=== PATIENT | female | born 1950 | race Caucasian/White ===

== ENCOUNTER 2021-09-30 18:22 | Inpatient (IN) ==
[2021-09-30] MEDS ORDERED: D5% in Water 1,000 ML IVC ONE (18:52)
[2021-09-30] MEDS ORDERED: *HR* Dextrose 50 % in Water (Syg) 50 ML SYRINGE ONE ×3 (18:52→21:52)
[2021-09-30] MEDS ORDERED: *HR* Dextrose 50 % in Water (Syg) 50 ML SYRINGE IVP ONE ×4 (18:58→22:41)
[2021-09-30] MEDS ORDERED: D5% in Water 1,000 ML IVC SCH (19:00)
[2021-09-30] MEDS ORDERED: D5% in Water 500 ML IVC SCH (19:00)
[2021-09-30 19:05] LABS: Basophils % 0.2 %; Eosinophils # 0.1 K/mcL (0.0-0.6); Eosinophils % 2.1 %; Hematocrit 34.3 % (35.3-44.9); Hemoglobin 8.7 g/dL (11.5-15.4); Immature Granulocytes % 0.3 % (0-4); Lymphocytes # 0.6 K/mcL (0.6-4.6); Lymphocytes % 10.1 %; Mean Corpuscular HGB Conc 25.4 g/dL (31.6-35.5); Mean Corpuscular Volume 94.8 fL (83.0-100.0); Monocytes # 0.5 K/mcL (0.0-1.3); Monocytes % 8.7 %; Neutrophils # 4.8 K/mcL (1.6-8.9); Platelet Count 138 K/mcL (140-400); Red Blood Count 3.62 M/mcL (3.82-4.97); Red Cell Distribution Width 16.2 % (11.5-14.5); Segmented Neutrophils % 78.6 %; White Blood Count 6.1 K/mcL (4.3-11.1)
[2021-09-30 19:07] LABS: Hypochromasia Present (Not Present); Platelet Estimate Normal (Normal)
[2021-09-30 19:13] LABS: VBG HCO3 33 mEq/L (21-27); VBG PCO2 77 mmHg (41-51); VBG PH 7.24 pH Units (7.32-7.42); VBG PO2 63 mmHg (25-50)
[2021-09-30 19:19] LABS: Albumin 2.9 g/dL (3.5-5.7); Bilirubin,Total 0.4 mg/dL (0.3-1.0); Calcium 10.4 mg/dL (8.6-10.3); Potassium 4.4 mEq/L (3.5-5.1); Total Protein 5.9 g/dL (6.4-8.9)
[2021-09-30] MEDS ORDERED: D10% in Water 500 ML IVC SCH (20:00)
[2021-09-30 21:06] LABS: ABG Base Excess 4 mEq/L (-2 to 3); ABG HCO3 34 mEq/L (21-27); ABG Oxygen Saturation 88 % (95-98); ABG PCO2 90 mmHg (35-45); ABG PH 7.18 pH Units (7.32-7.45); ABG PO2 71 mmHg (85-104); ABG TCO2 37 mEq/L (20-26)
[2021-09-30] MEDS ORDERED: *HR* LORazepam 2 MG/ML VIAL IVP ONE (22:12)
[2021-10-01 00:05] LABS: ABG Base Excess 4 mEq/L (-2 to 3); ABG HCO3 35 mEq/L (21-27); ABG Oxygen Saturation 85 % (95-98); ABG PCO2 101 mmHg (35-45); ABG PH 7.15 pH Units (7.32-7.45); ABG PO2 68 mmHg (85-104); ABG TCO2 38 mEq/L (20-26)
[2021-10-01] MEDS ORDERED: Naloxone 0.4 MG/ML INJ IVP PRN (01:15)
[2021-10-01] MEDS ORDERED: *HR* LORazepam 2 MG/ML VIAL IVP ONE (01:15)
[2021-10-01] MEDS ORDERED: Ondansetron 4 MG/2 ML VIAL IVP PRN (01:15)
[2021-10-01] MEDS ORDERED: *HR* Dextrose 50 % in Water (Syg) 50 ML SYRINGE ONE ×3 (03:09)
[2021-10-01] MEDS ORDERED: D5% in Water 1,000 ML IVC ONE (03:09)
[2021-10-01] MEDS: D10% in Water 500 ML IVC SCH ×2 (03:55→11:26)
[2021-10-01] MEDS ORDERED: Furosemide 20 MG TABLET PO SCH (08:00)
[2021-10-01] MEDS: carvediloL 25 MG TABLET PO SCH ×2 (08:52→16:35)
[2021-10-01 10:00] LABS: ABG Base Excess 5 mEq/L (-2 to 3); ABG HCO3 34 mEq/L (21-27); ABG Oxygen Saturation 85 % (95-98); ABG PCO2 77 mmHg (35-45); ABG PH 7.25 pH Units (7.32-7.45); ABG PO2 61 mmHg (85-104); ABG TCO2 36 mEq/L (20-26)
[2021-10-01] MEDS: Ipratropium/Albuterol Neb 3 ML IH SCH ×3 (10:47→19:31)
[2021-10-01] MEDS: MethylPREDNISolone 40 MG/ML VIAL IVP SCH ×2 (11:23→11:36)
[2021-10-01] MEDS: D5% in Water 1,000 ML IVC SCH ×2 (11:24)
[2021-10-01] MEDS ORDERED: *HR* LORazepam 2 MG/ML VIAL IVP PRN (11:38)
[2021-10-01] MEDS ORDERED: *HR* LORazepam 0.5 MG TABLET PO PRN (16:49)
[2021-10-01] MEDS ORDERED: Ondansetron ODT 4 MG TAB.RAPDIS SL PRN (16:53)
[2021-10-01] MEDS: Furosemide 20 MG TABLET PO SCH (17:16)
[2021-10-01] MEDS ORDERED: Ipratropium/Albuterol Neb 3 ML IH PRN (19:55)
[2021-10-01] MEDS ORDERED: Furosemide 20 MG/2 ML VIAL IVP SCH (21:00)
[2021-10-01] MEDS ORDERED: Haloperidol Lactate 5 MG/ML VIAL IVP ONE (21:22)
[2021-10-01 21:55] LABS: Basophils % 0.2 %; Eosinophils % 0.2 %; Hematocrit 33.9 % (35.3-44.9); Immature Granulocytes % 0.6 % (0-4); Lymphocytes # 0.7 K/mcL (0.6-4.6); Lymphocytes % 10.1 %; Mean Corpuscular HGB Conc 26.5 g/dL (31.6-35.5); Mean Corpuscular Hemoglobin 24.5 pg (28.0-33.3); Mean Corpuscular Volume 92.4 fL (83.0-100.0); Mean Platelet Volume 11.6 fL (9.4-12.4); Monocytes # 0.2 K/mcL (0.0-1.3); Monocytes % 3.3 %; Neutrophils # 5.5 K/mcL (1.6-8.9); Platelet Count 145 K/mcL (140-400); Red Blood Count 3.67 M/mcL (3.82-4.97); Red Cell Distribution Width 15.9 % (11.5-14.5); Segmented Neutrophils % 85.6 %; White Blood Count 6.4 K/mcL (4.3-11.1)
[2021-10-01 22:02] LABS: INR 1.2; Prothrombin Time 13.3 Seconds (9.4-12.1)
[2021-10-01 22:04] LABS: ABG Base Excess 4 mEq/L (-2 to 3); ABG HCO3 36 mEq/L (21-27); ABG Oxygen Saturation 95 % (95-98); ABG PCO2 103 mmHg (35-45); ABG PH 7.15 pH Units (7.32-7.45); ABG PO2 106 mmHg (85-104); ABG TCO2 39 mEq/L (20-26)
[2021-10-01 22:22] LABS: Calcium 10.1 mg/dL (8.6-10.3); Magnesium 2.2 mg/dL (1.6-2.6); Potassium 5.8 mEq/L (3.5-5.1)
[2021-10-02] MEDS ORDERED: *HR* Enoxaparin 40 MG/0.4 ML SYRINGE SQ SCH (06:00)
[2021-10-02 06:21] LABS: Hematocrit 34.1 % (35.3-44.9); Mean Corpuscular HGB Conc 26.4 g/dL (31.6-35.5); Mean Corpuscular Hemoglobin 24.2 pg (28.0-33.3); Mean Corpuscular Volume 91.7 fL (83.0-100.0); Mean Platelet Volume 11.6 fL (9.4-12.4); Platelet Count 154 K/mcL (140-400); Red Blood Count 3.72 M/mcL (3.82-4.97); White Blood Count 8.4 K/mcL (4.3-11.1)
[2021-10-02 06:44] LABS: Albumin/Globulin Ratio 0.9 (1.1-2.2); Bilirubin,Direct 0.1 mg/dL (0.0-0.2); Bilirubin,Indirect 0.3 mg/dL (0.0-1.0); Bilirubin,Total 0.4 mg/dL (0.3-1.0); Globulin 3.2 g/dL (2.4-3.5); Total Protein 6.2 g/dL (6.4-8.9)
[2021-10-02 06:50] LABS: Bilirubin,Total 0.4 mg/dL (0.3-1.0); Globulin 3.1 g/dL (2.4-3.5); Magnesium 2.4 mg/dL (1.6-2.6); Potassium 5.4 mEq/L (3.5-5.1); Total Protein 6.1 g/dL (6.4-8.9)
[2021-10-02 06:53] VITALS: BP 114/50; PULSE 63; RESP 20; TEMP 98.5; O2SAT 92
[2021-10-02 07:07] LABS: Calcium 10.1 mg/dL (8.6-10.3)
[2021-10-02] MEDS: Furosemide 20 MG TABLET PO SCH (08:06)
[2021-10-02] MEDS: carvediloL 25 MG TABLET PO SCH (08:06)
[2021-10-02] MEDS ORDERED: predniSONE 20 MG TABLET PO SCH (09:00)
== END 2021-10-03 08:01 | DRG 643 ==
LOC: INPGRE 18:22 → EMEROOGRE 18:22 → INPGRE 10-01 03:00
PROVIDERS: ADMIT Family Medicine; ATTEND Family Medicine